=== PATIENT | female | born 1985 | race African-American/Black ===

== ENCOUNTER 2020-11-08 10:07 | Emergency (ER) | payer OTHER ==
[~2020-11-08] VITALS: Ht 167.6 cm; Wt 73.5 kg
[2020-11-08 10:07] VITALS: BP 117/66
[2020-11-08] MEDS ORDERED: BUTALB-APAP-CA1 EACH PO (12:07)
== END 2020-11-08 12:07 | disposition home or self-care (01) ==
LOC: ER 10:07
DX: R51.9 Headache, unspecified (principal); R05 Cough; Z20.822 Contact with and (suspected) exposure to COVID-19; Z91.09 Other allergy status, other than to drugs and biological substances

== ENCOUNTER 2020-12-22 15:54 | Emergency (ER) | payer OTHER ==
[~2020-12-22] VITALS: Ht 165.1 cm; Wt 72.6 kg
[~2020-12-22 15:54] MED LIST: BUTALB-APAP-CA1 EACH PO
[2020-12-22] MEDS ORDERED: DEPO-MEDRO20 MG/1 ML IM (15:57)
[2020-12-22] MEDS ORDERED: PROAIR HFA8.5 GM INH (15:57)
[2020-12-22] MEDS ORDERED: XANAX 0.25 MG0.25 MG PO (15:58)
[2020-12-22 18:45] VITALS: BP 117/73
[2020-12-22] MEDS ORDERED: FLEXERIL PO (19:01)
== END 2020-12-22 18:45 | disposition home or self-care (01) ==
LOC: ER 15:54
PROVIDERS: Emergency Medicine
DX: U07.1 COVID-19 (principal); Z79.899 Other long term (current) drug therapy; Z88.6 Allergy status to analgesic agent